=== PATIENT | female | born 1990 | race African-American/Black ===

== ENCOUNTER 2017-03-14 17:52 | Emergency (ER) | payer OTHER ==
[~2017-03-14] VITALS: Ht 172.7 cm; Wt 144.1 kg
[2017-03-14 18:09] VITALS: BP 139/90; PULSE 106; RESP 22; O2SAT 100
--- NOTE | 2017-03-14 19:55 | ED.REPORT ---
HPI-Dyspnea / Wheezing Date of Service Mar 14, 2017 ED Provider: Dr. Kirk The pt is a 26 y/o female with a hx of hypothyroidism and asthma presenting to the ED complaining of chest pain and SOB onset 6 days ago. She experiences SOB with exertion. She experiences the chest pain with deep inspirations, hiccups, and laughing. She reports using her Ventalin but it has not helped with her symptoms. She denies wheezing, cough, fever, leg swelling or a family hx of abnormal blood clotting. She reports having an episode on 03/12 of heavy coughing , which stopped after vomiting. Pt denies smoking cigarettes. She flew back from [place] on 03/08/17. She has a Implanon control implant in her R arm. 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 Nursing Notes Stated Complaint: ASTHMA, BREATHING TROUBLE Chief Complaint: Respiratory Distress Nursing Notes Reviewed: Yes Allergies: Coded Allergies: No Known Allergies (Unverified , 03/14/17) General Time Seen by MD: 19:54 Chief Complaint Chest pain, Shortness of breath Hx Obtained From: Patient Arrived By: Walk-in Sudden in Onset?: No Onset Occurred: 6 days ago Symptom Duration: Intermittent Location: : Substernal Quality: Pleuritic Severity: Current: Moderate Severity: Maximum: Moderate Recent Healthcare: No recent doctor visit Similar Sx Previous: No Past Medical History Past Medical History Hypothyroidism Reports: Asthma Past Surgical History None reported Family History Denies family hx of abnormal blood clotting Smoking History Never Smoker Social History Drug Use: THC Ambulatory Status Independent Review of Systems Constitutional: Denies: Chills, Fever Respiratory: Reports: Pleuritic pain, Shortness of breath, Denies: Non-productive cough, Wheezing Cardiovascular: Reports: Chest pain, Denies: Edema Musculoskeletal: Denies: Extremity pain, Extremity swelling Complete sys rev & neg: except as marked. Physical Exam Physical Exam Notes: Morbidly obese your female, looks well, no distress Initial Vital Signs Vital Signs (First) Date Time Temp Pulse Resp B/P Pulse Ox O2 Delivery O2 Flow Rate FiO2 03/14/17 18:09 36.1 106 22 139/90 100 Room Air Initial VS: Reviewed, Vital signs abnormal Head / Eyes: Atraumatic, Normocephalic, PERRL ENT: Mucous membranes moist, Conjunctiva normal, No scleral icterus Abdomen / GI: Soft, Non-tender, No guarding, No rebound, No distention Extremities: Vascular intact, Neuro intact, No swelling, No tenderness Skin: Warm, Dry, No cyanosis Neurologic: Alert, Oriented, Nonfocal Psychiatric: Mood/affect normal, Behavior normal, Normal thought content General/Constitutional: Awake, Alert, No acute distress, Well appearing, Well developed, Well nourished, Cooperative, Not toxic appearing Appearance / Presentation: Positive: Obese Neck: Atraumatic, Supple, No meningismus, Full range of motion, No swelling, Non-tender, No masses Respiratory / Chest: Atraumatic, Breath sounds NL, Breath sounds = bilat, No respiratory distress, No rales, No rhonchi, No wheezing, No retractions, No stridor, No chest wall deformity, No crepitus Reproducible sternal chest tenderness Cardiovascular: Heart rate NL, Regular rhythm, Heart sounds NL, No gallop, No murmurs, No rubs, Peripheral circulation NL Interpretation & Diagnostics Lab Results Interpretation Result Diagram: 03/14/17202103/14/172021 Test 03/14/17 20:22 03/14/17 21:33 White Blood Count 9.7th/mm3 (3.8-10.1) Red Blood Count 4.60mil/mm3 (3.90-5.20) Hemoglobin 13.7g/dL (12.0-15.6) Hematocrit 42.4% (35.0-46.0) Mean Corpuscular Volume 92.2fL (81-100) Mean Corpuscular Hemoglobin 29.8pg (27.0-35.0) Mean Corpuscular Hemoglobin Concent 32.3% (32.0-37.0) Red Cell Distribution Width 14.5% (12.3-15.4) Platelet Count 310bil/L (150-400) Neutrophils (%) (Auto) 61.3% (40-74) Lymphocytes (%) (Auto) 31.6% (14-46) Monocytes (%) (Auto) 5.3% (4-12) Eosinophils (%) (Auto) 1.4% (0-5) Basophils (%) (Auto) 0.2% (0-3) D-Dimer 0.81mg/L FEU (<0.50) Sodium Level 136mEq/L (134-144) Potassium Level 4.0mEq/L (3.5-5.2) Chloride Level 102mEq/L (97-108) Carbon Dioxide Level 21mmol/L (18-29) Blood Urea Nitrogen 13mg/dL (6-20) Creatinine 0.73mg/dL (0.57-1.00) Estimat Glomerular Filtration Rate 124mL/min (>59) Glucose Level 84mg/dL (60-99) Calcium Level 9.6mg/dL (8.5-10.1) Magnesium Level 2.2mg/dL (1.6-2.6) Total Bilirubin 0.3mg/dL (0.0-1.2) Aspartate Amino Transf (AST/SGOT) 22U/L (0-50) Alanine Aminotransferase (ALT/SGPT) 17U/L (0-32) Alkaline Phosphatase 113U/L (25-150) Troponin T 0.010ug/L (0.0-0.011) Total Protein 8.4g/dL (6.4-8.4) Albumin 4.0g/dL (3.4-5.0) Hold Ramos Top Tube Received (Received) Hold Urine Received (Received) ECG Interpretation ECG Interpretation: Sinus rhythm, Rate 92 Time: 20:33 Interpreted by: ED physician Normal ECG Interpretation: No acute ischemic changes X-Ray Chest Interpretation Chest Xray Interpretation: IMPRESSION: No acute cardiopulmonary disease. Dictated by: Toño Obando M.D. on 03/14/2017 at 20:33 Approved by: Toño Obando M.D. on 03/14/2017 at 20:43 View: Portable, 1 view Interpretation / Wet Read by: Interpret - Radiologist CT Chest Interpretation IMPRESSION: No evidence for central pulmonary embolism. Dictated by: Toño Obando M.D. on 03/14/2017 at 22:01 Approved by: Toño Obando M.D. on 03/14/2017 at 22:04 Study type: CT pulm angiogram Interpretation / Wet Read by: Interpret - Radiologist Re-Eval/Medical Decision Re-Evaluation/Progress #1: Time of Eval: 21:30 Re-Evaluation/Progress Note: Informed pt of need for CT scan due to abnormal D-dimer. She agrees with plan. Re-Evaluation/Progress #2: Time of Eval: 22:22 Re-Evaluation/Progress Note: Pt rechecked. Discussed negative imaging findings. Informed pt of plan for treatment. Pt understands and agrees with plan for treatment. F/U instructions and RTER warnings given. All questions addressed. Counseled Regarding: Diagnosis, Lab results, Need for follow-up, When/why to return to ED Discharge & Departure Impression: Primary Impression: Dyspnea Dyspnea type: shortness of breath Qualified Code: R06.02 - Shortness of breath Additional Impression: Chest wall pain Disposition: Home Discharge Condition All VS Reviewed: Yes Condition: Stable Additional Instructions: Emergency department evaluation today included history, physical exam, chest x- ray, EKG, and chest CT scan. No serious cause for chest pains identified tonight. We find no evidence for problems with heart, pneumonia or pulmonary embolism. It is safe to use ibuprofen 400 mg 3-4 times a day as needed for pain. Use albuterol inhaler as needed only if wheezing. Return to the emergency department for fevers or increasing chest pain increasing shortness of breath. Follow up with primary care next week. Referrals: Lucius Anguiano MD (PCP) Scribe Attestation Portions of this note were transcribed by Timmy Leyva and Subhash Ybarra. I, Dr. Kirk personally performed the history, physical exam and medical decision- making; I reviewed and confirmed the accuracy of the information in the transcribed note. Signed by: Timmy Leyva and Diallo Salmon, 03/14/17 and 2027. copies to: Lucius Anguiano MD, Donald L MD Mar 14, 2017 19:55 Timmy Leyva Mar 14, 2017 20:11 SUBHASH YBARRA Mar 14, 2017 21:01
[2017-03-14 20:34] VITALS: BP 138/71; PULSE 90; RESP 20; O2SAT 100
[2017-03-14 20:37] LABS: BASOPHILS % (AUTO) 0.2 % (0-3); EOSINOPHILS % (AUTO) 1.4 % (0-5); MONOCYTES % (AUTO) 5.3 % (4-12); Mean Corpuscular Hemoglobin 29.8 pg (27.0-35.0); Mean Corpuscular Volume 92.2 fL (81-100); NEUTROPHILS % (AUTO) 61.3 % (40-74); Platelet Count 310 bil/L (150-400)
--- NOTE | 2017-03-14 20:44 | DRSVH ---
PROCEDURE: X-RAY CHEST ONE VIEW, PORTABLE ([id number]) INDICATIONS: chest pain TECHNIQUE: One view of the chest was acquired. COMPARISON: None. FINDINGS: Surgical changes and devices: None. Lungs and pleura: No pleural effusions or pneumothorax. Lungs are clear. Mediastinum: Mediastinal contours appear normal. Heart size is normal. Bones and chest wall: No suspicious bony lesions. Overlying soft tissues appear unremarkable. IMPRESSION: No acute cardiopulmonary disease. Dictated by: Toño Obando M.D. on 03/14/2017 at 20:33 Approved by: Toño Obando M.D. on 03/14/2017 at 20:43
[2017-03-14 21:00] LABS: TROPONIN T 0.01 ug/L (0.0-0.011)
[2017-03-14 21:11] LABS: Magnesium 2.2 mg/dL (1.6-2.6)
[2017-03-14] MEDS ORDERED: 0.9% Sodium Chloride 1,000 ML IV ONE (21:30)
--- NOTE | 2017-03-14 22:05 | DRSVH ---
PROCEDURE: CT ANGIO CHEST PULMONARY EMBOLISM ([id number]) INDICATIONS: chest pain and elevated dimer TECHNIQUE: After the administration of intravenous contrast, 2 mm thick sections acquired from the pulmonary api jayy to the posterior costophrenic angles. 3-dimensional maximum intensity projection (MIP) coronal a nd sagittal reformats were then acquired through the thorax. For radiation dose reduction, the follo wing was used: automated exposure control, adjustment of mA and/or kV according to patient size. COMPARISON: [facility], CR, XR CHEST 1VW (PORTABLE), 03/14/2017, 20:04. FINDINGS: Image quality: Excellent. Pulmonary arteries: Pulmonary arteries are normal in size, and demonstrate no intraluminal filling d efects to suggest central pulmonary embolism. Lungs and pleura: Lungs are clear. No pleural effusions or pneumothorax. Central and peripheral ai rways are patent. Mediastinum: Heart size is normal, without pericardial effusion. No mediastinal or hilar adenopathy . Thoracic aorta is normal in caliber and enhancement. Esophagus is normal in caliber. There is a s mall hiatal hernia. Bones and chest wall: No suspicious bony lesions. Ribs and thoracic spine appear intact throughout. Thyroid gland is normal. No axillary or supraclavicular adenopathy. Abdomen: Visualized upper abdominal solid organs appear normal in the early arterial phase of enhanc ement. IMPRESSION: No evidence for central pulmonary embolism. Dictated by: Toño Obando M.D. on 03/14/2017 at 22:01 Approved by: Toño Obando M.D. on 03/14/2017 at 22:04
[2017-03-14 22:34] VITALS: BP 120/81; PULSE 98; RESP 22; O2SAT 100
== END 2017-03-14 22:35 | disposition home or self-care (01) ==
LOC: SED 17:52
DX: R06.02 Shortness of breath (principal); R07.89 Other chest pain; J45.909 Unspecified asthma, uncomplicated; E03.9 Hypothyroidism, unspecified
CPT/HCPCS: 36415; 71010; 71275; 80053; 81025; 83735; 84484; 85025; 85378; 93005; 99285; Q9967